=== PATIENT | male | born 1975 | race Hispanic/Latino ===

== ENCOUNTER 2020-11-14 20:56 | Emergency (ER) | payer SELFPAY ==
[2020-11-14] MEDS ORDERED: Acetaminophen 500 MG TAB ONE (22:57)
[2020-11-14] MEDS ORDERED: Cyclobenzaprine 10 MG TAB ONE (23:19)
[2020-11-14] MEDS ORDERED: Ondansetron ODT 4 MG TAB ONE (23:19)
[2020-11-15 00:39] LABS: Bacteria/HPF None Seen HPF (None Seen); Bilirubin Negative (Negative); Blood, Urine Trace (Negative); Clarity Clear (Clear); Glucose, Urine (Dipstick) Normal (Negative); Ketone, Urine Negative (Negative); Leukocyte Negative Leu/uL (Negative); Nitrite Negative (Negative); Protein, Urine (Dipstick) 20 mg/dL (Neg-Trace); RBC/HPF 0-3 HPF (0-3); Specific Gravity, Urine 1.033 (1.002-1.036); Squamous Epithelial 0-3 HPF (0-3); Urobilinogen Normal mg/dL (Less than 2); WBC/HPF 0-3 HPF (0-3); pH, Urine 5.5 (5.0-9.0)
[2020-11-15 21:38] LABS: SARS-CoV-2 PCR by NAA Not Detected (NotDetected)
== END 2020-11-15 01:18 | disposition home or self-care (01) ==
LOC: ERS 20:56
DX: M54.5 Low back pain (principal); R31.9 Hematuria, unspecified; R19.7 Diarrhea, unspecified; Z20.822 Contact with and (suspected) exposure to COVID-19
CPT/HCPCS: 81003; 81015; 99283; Q0162; U0003; U0005